=== PATIENT | female | born 1955 | race Caucasian/White ===

== ENCOUNTER 2024-09-22 10:02 | Emergency (ER) | payer MEDICARE, SELFPAY ==
[2024-09-22 10:15] VITALS: BP 166/76; PULSE 68; RESP 14; TEMP 36.4; O2SAT 98
--- OUTSIDE RECORDS SUMMARY | 2024-09-22 10:15 | XMS_ITS | Encounter Summary ---
Author Organization [facility] Address 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 - Medical [facility] [address] [facility] [address] [place] [id number] Ángel Basilio MD [address] [facility] [address] [place] [address] Social History Tobacco Use Types Packs/Day Years Used Date Smoking Tobacco: Never Assessed Comments Unknown Sex and Gender Information Value Date Recorded Sex Assigned at Not on file 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
--- OUTSIDE RECORDS SUMMARY | 2024-09-22 10:15 | XMS_ITS | Encounter Summary ---
Author Organization [facility] Address [address] [place] [address] Care Team Providers Care Auto Machinist Name Role Phone Tatianna Gonzalez MD Primary Care Provider [phone] Encounter Details Date Type Department Care Team (Latest Contact Info) Description 05/20/2000 Outpatient Historical [facility] JESSICA Basilio, Ángel Weems MD [address] [facility] [address] [place] [address] Gynecological examination (Primary Dx) Social History Tobacco Use Types Packs/Day Years Used Date Smoking Tobacco: Never Assessed Comments Unknown Sex and Gender Information Value Date Recorded Sex Assigned at Not on file 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
--- OUTSIDE RECORDS SUMMARY | 2024-09-22 10:15 | XMS_ITS | Encounter Summary ---
Author Organization [facility] Address 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
--- OUTSIDE RECORDS SUMMARY | 2024-09-22 10:15 | XMS_ITS | Encounter Summary ---
Author Organization [facility] Address 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 Gender Identity Not on file Sexual Orientation Not on file documented as of this encounter Plan of Treatment Not on file documented as of this encounter Procedures Procedure Name Priority Date/Time Associated Diagnosis Comments ECHO STRESS TEST EXERCISE WO ECG Routine 03/04/2008 3:44 PM DISH MACHINE OPERATOR CTA CHEST W WO CONTRAST Timed Study 03/04/2008 2:18 PM DISH MACHINE OPERATOR POC CREATININE Routine 03/04/2008 2:10 PM DISH MACHINE OPERATOR documented in this encounter Results * ECHOCARDIOGRAM STRESS TEST (03/04/2008 3:44 PM DISH MACHINE OPERATOR) Narrative INTERFACE SYSTEM - 03/04/2008 3:44 PM DISH MACHINE OPERATOR [facility] [address] [place] [address] [email or web address] Patient: Mary Brizuela MRN: Study ID: ADULT STRESS ECH Gender: Dank : 1955 Age: 53 years Race: 1 Room: Bed: Height: Study Date: March 04, 2008 Patient status: Outpatient Weight: Access. #: [id number] POC: Referring MD: Juliann Ordering: Jerry Referring MD: Juliann Attending MD: Jerry Admitting MD: Jerry Study Conclusions: SUMMARY - Stress results : Duration of exercise was 7 min and 16 sec. Target heart rate was achieved. There was no chest pain during stress. The stress ECG was negative for ischemia. - Baseline : Estimated left ventricular ejection fraction was in the range of 55 % to 65 %. - Echo image interpretation : There was no diagnostic evidence for stress-induced ischemia. IMPRESSIONS - Normal study after maximal exercise without reproduction of symptoms. History and indications - Detection of coronary artery disease. HISTORY - The patient is a 53 year old female. REST ECG - Normal baseline ECG. Treadmill exercise testing was performed, using the Salvador protocol. Stress and rest echocardiographic evaluation was performed from multiple acoustic windows for evaluation of ventricular function. Stress results Salvador protocol HR bpm SBP mmHg DBP mmHg Baseline 98 119 77 Peak 161 156 67 STRESS TEST DATA - No medications or fluids given. STRESS RESULTS - Duration of exercise was 7 min and 16 sec. - The patient exercised to protocol stage 3. - Maximal work rate was 10 METs. - Functional capacity was normal. - Maximal heart rate during stress was 161 bpm ( 97 % of maximal predicted heart rate). - The heart rate response to stress was normal. - There was normal resting blood pressure with an appropriate response to stress. - The rate-pressure product for the peak heart rate and blood pressure was [address]. - There was no chest pain during stress. - The stress test was terminated due to dyspnea and fatigue. - There were no stress arrhythmias or conduction abnormalities. - The stress ECG was negative for ischemia. Imaging data IMAGE PROPERTIES - The image quality was excellent. STRESS 2D ECHOCARDIOGRAPHIC RESULTS Baseline: - There was no diagnostic evidence for left ventricular regional wall motion abnormalities at baseline. - Left ventricular size was normal. - Overall left ventricular systolic function was normal. - Estimated left ventricular ejection fraction was in the range of 55 % to 65 %. ECHO IMPRESSIONS - There was no diagnostic evidence for stress-induced ischemia. Prepared and Electronically Authenticated Geremias Carty MD Confirmed March 04, 2008 15:19:53 Procedure Note Provider, Historical - 03/04/2008 [facility] [address] [place] [address] [email or web address] Patient: Mary Brizuela MRN: Study ID: ADULT STRESS ECH Gender: Dank : 1955 Age: 53 years Race: 1 Room: Bed: Height: Study Date: March 04, 2008 Patient status: Outpatient Weight: Access. #: [id number] POC: Referring MD: Juliann Ordering: Jerry Referring MD: Juliann Attending MD: Jerry Admitting MD: Jerry Study Conclusions: SUMMARY - Stress results : Duration of exercise was 7 min and 16 sec. Targetheart rate was achieved. There was no chest pain during stress. The stress ECG was negative for ischemia. - Baseline : Estimated left ventricular ejection fraction was in therange of 55 % to 65 %. - Echo image interpretation : There was no diagnostic evidence for stress-induced ischemia. IMPRESSIONS - Normal study after maximal exercise without reproduction of symptoms. History and indications - Detection of coronary artery disease. HISTORY - The patient is a 53 year old female. REST ECG - Normal baseline ECG. Treadmill exercise testing was performed, using the Salvador protocol.Stress and rest echocardiographic evaluation was performed from multipleacoustic windows for evaluation of ventricular function. Stress results Salvador protocol HR bpm SBP mmHg DBP mmHg Baseline 98 119 77 Peak 161 156 67 STRESS TEST DATA - No medications or fluids given. STRESS RESULTS - Duration of exercise was 7 min and 16 sec. - The patient exercised to protocol stage 3. - Maximal work rate was 10 METs. - Functional capacity was normal. - Maximal heart rate during stress was 161 bpm ( 97 % of maximalpredicted heart rate). - The heart rate response to stress was normal. - There was normal resting blood pressure with an appropriate responseto stress. - The rate-pressure product for the peak heart rate and blood pressurewas 23820. - There was no chest pain during stress. - The stress test was terminated due to dyspnea and fatigue. - There were no stress arrhythmias or conduction abnormalities. - The stress ECG was negative for ischemia. Imaging data IMAGE PROPERTIES - The image quality was excellent. STRESS 2D ECHOCARDIOGRAPHIC RESULTS Baseline: - There was no diagnostic evidence for left ventricular regional wall motion abnormalities at baseline. - Left ventricular size was normal. - Overall left ventricular systolic function was normal. - Estimated left ventricular ejection fraction was in the range of 55 %to 65 %. ECHO IMPRESSIONS - There was no diagnostic evidence for stress-induced ischemia. Prepared and Electronically Authenticated Geremias Carty MD Confirmed March 04, 2008 15:19:53 us Geremias Carty MD US ORDERABLES Final Result INTERFACE SYSTEM Refer to clinic/hospital department * CTA CHEST W WO CONTRAST (03/04/2008 2:18 PM DISH MACHINE OPERATOR) Anatomical Region Laterality Modality Chest Other 03/04/2008 2:18 PM DISH MACHINE OPERATOR Narrative 03/04/2008 3:05 PM DISH MACHINE OPERATOR [facility] [address] [place], [place] [address] Admit Date: 03/04/2008 MARY BRIZUELA Sex: F Admit Prov: GEREMIAS CARTY Date: 1955 Primary Care Prov: MONTY BIRMINGHAM CMRN: [id number] Room: [facility] SSN: [id number] IMAGING SERVICES Ordering Prov: N/A Accession Number: [id number] Interpretation CT Angiography of the Chest History: 53-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 Procedure: Contrast-enhanced CT angiography was performed with 105 cc of Optiray-320. Offline curved reformatted, volume rendered and maximum intensity projection images were obtained with an independent workstation. Vascular Findings: The aortic valve is trileaflet without thickening. There is no diastolic opening of the commissures to suggest aortic insufficiency. The aortic annulus is dilated at 43 x 37 mm in diameter. The aortic sinotubular junction is at upper limits of normal at 39 x 35 mm. The mid ascending aorta is mildly dilated at 40 mm diameter. The superior ascending aorta immediately before the innominate artery takeoff is 32 mm in diameter. Mid aortic arch is 27 mm in diameter. Proximal descending aorta is 28 mm in diameter. Distal descending aorta is 23 mm in diameter. There is a bovine configuration of the aortic arch. No atherosclerosis is seen at the origins of the innominate, left and right carotid and left subclavian arteries. There are normal origins of the right and left coronary arteries off of the right and left coronary cusps. Cardiac motion artifacts preclude coronary analysis. Contrast CT of the Chest: Nonvascular Findings: There is a 1 cm sclerotic lesion in the right side of the T3 vertebral body. No significant axillary lymph nodes. The breasts are without masses. No mediastinal adenopathy. No pericardial effusion. The esophagus appears normal. No pulmonary nodules are visualized within the reconstructed lung daley. No lesions are seen in the dome of the liver. Images reviewed with Dr. Edilberto Antunez. Impression: 1. Dilation of the aortic root to 4.0 cm diameter. 2. Normal aortic valve. 3. Unexplained sclerotic lesion in the T3 vertebral body. Consider bone scan and/or MRI for further evaluation to exclude the possibility of metastatic disease. . 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 Procedure: Contrast-enhanced CT angiography was performed with 105 ccof Optiray-320. Offline curved reformatted, volume rendered andmaximum intensity projection images were obtained with an independentworkstation. Vascular Findings: The aortic valve is trileaflet without thickening.There is no diastolic opening of the commissures to suggest aorticinsufficiency. The aortic annulus is dilated at 43 x 37 mm in diameter. The aortic sinotubular junction is at upper limits of normal at 39 x 35 mm. Themid ascending aorta is mildly dilated at 40 mm diameter. The superiorascending aorta immediately before the innominate artery takeoff is 32 mm in diameter. Mid aortic arch is 27 mm in diameter. Proximal descendingaorta is 28 mm in diameter. Distal descending aorta is 23 mm in diameter.There is a bovine configuration of the aortic arch. No atherosclerosis isseen at the origins of the innominate, left and right carotid and leftsubclavian arteries. There are normal origins of the right and left coronaryarteries off of the right and left coronary cusps. Cardiac motion artifactspreclude coronary analysis. Contrast CT of the Chest: Nonvascular Findings: There is a 1 cm sclerotic lesion in the rightside of the T3 vertebral body. No significant axillary lymph nodes. Thebreasts are without masses. No mediastinal adenopathy. No pericardial effusion.The esophagus appears normal. No pulmonary nodules are visualized withinthe reconstructed lung daley. No lesions are seen in the dome of theliver. Images reviewed with Dr. Edilberto Antunez. Impression: 1. Dilation of the aortic root to 4.0 cm diameter. 2. Normal aortic valve. 3. Unexplained sclerotic lesion in the T3 vertebral body. Considerbone scan and/or MRI for further evaluation to exclude the possibilityof metastatic disease. . Dictated by: WALDEMAR RIVERA 03/04/2008 14:55 Electronically signed by: WALDEMAR RIVERA 03/04/2008 15:[address] ORDERABLES Final Result * POC CREATININE (03/04/2008 2:10 PM DISH MACHINE OPERATOR) CREATININE POC 0.9 0.6 - 1.3 mg/dL [facility] Comment: The calculation for the estimated GFR on the i-STAT POC instrument has been changed to correspond to the IDMS-traceable MDRD Study, upon the recommendation of the marketing operations consultant of the i-STAT instrument. The change was effective in our laboratory 02/01/2008. The impact of this change to the estimated GFR is minimal. This calculation is used by the main laboratory methodology also. GFR, >60 >=60 mL/min/1.7 sq meter [facility] GFR >60 >=60 mL/min/1.7 sq meter [facility] Capillary blood specimen (specimen) 03/04/2008 2:10 PM DISH MACHINE OPERATOR 03/04/2008 2:10 PM DISH MACHINE OPERATOR Geremias Carty MD POINT OF CARE TESTING Edited INTERFACE SYSTEM Refer to clinic/hospital department [facility] CLIA# [id number] [address] [place] [address] documented in this encounter Visit Diagnoses Diagnosis Chronic total occlusion of coronary artery(414.2) Chronic total occlusion of coronary artery documented in this encounter Care Teams Weight Shifter Relationship Specialty Start Date End Date Tatianna Gonzalez MD PCP - General Internal Medicine 12/05/17 documented as of this encounter
--- OUTSIDE RECORDS SUMMARY | 2024-09-22 10:15 | XMS_ITS | Encounter Summary ---
Author Organization [facility] Address [address] [place] [address] Care Team Providers Care Cis Coordinator Name Role Phone Tatianna Gonzalez MD Primary Care Provider [phone] Encounter Details Date Type Department Care Team (Late st Contact Info) Description 05/20/2000 Outpatient Historical [facility] AGED OR DISABLED CARE WORKER - Medical [facility] [address] [facility] [place] [address] [place] [phone] Elmer Newmanh Social History Tobacco Use Types Packs/Day Years Used Date Smoking Tobacco: Never Assessed Comments Unknown Sex and Gender Information Value Date Recorded Sex Assigned at Not on file 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
--- OUTSIDE RECORDS SUMMARY | 2024-09-22 10:15 | XMS_ITS | Clinical Summary ---
Author Organization [facility] Address [address] [place] [address] Care Team Providers Care Global Lead Name Role Phone Chasity Kelly DO Primary Care Provider [phone] Source Comments [facility],non-owned Affiliates and Associated Physician Practices is amultiple site organization consisting of ambulatory clinics and hospital sitesin [place], [place], [place] and [place]. This disclosure is being madepursuant to the Care Everywhere program and may not contain all information available regarding this patient. Last updated 17.[facility] Allergies No known active allergies Medications * Be aware that medications may not be up to date on this document. Alwaysverify current medications with the patient. Calcium-Vitamin D (CALCIUM + D PO)Indications: Acid reflux,Dilated aortic root,HLD (hyperlipidemia ) Take by mouth daily. Active metoprolol succinate XL 24hr (TOPROL XL) 50 MG tablet Take 50 mg by mouth 7 Active omeprazole (PRILOSEC) 20 MG capsule TAKE 1 CAPSULE BY MOUTH DAILY BEFORE BREAKFAST 90 Cap 3 7 Active Active Problems Problem Noted Date Diagnosed Date Dilated aortic root cardilogy follows 09/07/2014 Acid reflux 06/19/2010 HLD (hyperlipidemia) 06/19/2010 Overview (06/19/2010): ldl 145 Resolved Problems Problem Noted Date Diagnosed Date Resolved Date Dilated aortic root 06/19/2010 08/06/19 12 Overview (06/19/2010): Sees Cardiology yearly Immunizations Immunization Administration Dates Next Due INFLUENZA VACCINE 12/14/2014,02/05/2014 ZOSTER VACCINE, LIVE 09/07/2014 Family History Medical History Relation Name Comments Cancer Father prostate CAD (Coronary Artery Disease) Mother Diabetes Mother Cancer - Breast Neg Hx Cancer - Ovarian Neg Hx Relation Name Status Comments Father Alive Mother Alive Social History Tobacco Use Types Packs/Day Years Used Date Smoking Tobacco: Never Alcohol Use Standard Drinks/Week Comments Yes 0 (1 standard drink = 0.6 oz pur e alcohol) very rarely Comments No Sex and Gender Information Value Date Recorded Sex Assigned at Female 01/13/2021 4:31 PM CIVIL ENGINEERING TECHNICIAN Legal Sex Female 4:08 AM CIVIL ENGINEERING TECHNICIAN Gender Identity Female 01/13/2021 4:31 PM CIVIL ENGINEERING TECHNICIAN Sexual Orientation Straight 01/13/2021 4: 31 PM CIVIL ENGINEERING TECHNICIAN Last Filed Vital Signs Vital Sign Reading Time Taken Comments Blood Pressure 132/78 06/07/2016 1:01 PM CDT Pulse 73 06/07/2016 1:01 PM CDT Temperature 36.8 C (98.2 F) 11/03/2009 2:16 PM CDT Respiratory Rate 12 10/15/2011 11:00 AM CDT Oxygen Saturation 97% 06/07/2016 1:01 PM CDT Inhaled Oxygen Concentration - - Weight 79.4 kg (175 lb) 05/27/2024 1:22 PM CDT Height 166.4 cm (5' 5.5 ) 04/24/2023 1:39 PM CIVIL ENGINEERING TECHNICIAN Body Mass Index 28.68 04/24/2023 1:39 PM CIVIL ENGINEERING TECHNICIAN Plan of Treatment Health Maintenance Due Date Last Done Comments COLOGUARD (AGES 45-75) - COLON CA SCREENING 1955 CT COLONOGRAPHY - COLON CA SCREENING 1955 FIT - COLON CA SCREENING 1955 FLEX SIG - COLON CA SCREENING 1955 MEDICARE AWV 12 MONTHS 1955 DTAP/TDAP/TD VACCINES (1 - Tdap) 1973 PNEUMOCOCCAL VACCINE 50+ (1 of 1 - PCV) 02/24/2004 ZOSTER VACCINE (2 of 3) 11/02/2014 09/07/2014 LIPID TESTING 10/25/2020 10/26/2015, 08/24, 11/16/2013, Additional history exists COVID-19 VACCINE (2023- season) 2023 DEPRESSION SCREENING 02/25/2024 INFLUENZA VACCINE (#1) 2024 12/14/2014, 2013 MAMMOGRAM 05/27/2026 05/27/2024, 03/28, 04/22/2022, Additional history exists Respiratory Syncytial Virus (RSV) Vaccine Pt: or over 60 yrs (1 - 1-dose 75+ series) 2029 COLON MONITORING 06/05/2033 06/06/2023, 10/30/2011 COLONOSCOPY - COLON CA SCREENING 06/05/2033 06/06/2023, 10/31/2011, 10/30/2011, Additional history exists Colorectal Cancer Screening 06/05/2033 HEPATITIS C SCREENING Completed 09/01/2012 BONE DENSITY TESTING Completed 03/29/2024, 12/07/19 21 HEPATITIS B VACCINE Aged Out No longe r eligible based on patient's age to complete this topic HIB VACCINE Aged Out No longer eligi ble based on patient's age to complete this topic HPV VACCINE Aged Out No longer eligi ble based on patient's age to complete this topic MENINGOCOCCAL (Group B) VACCINE SHARED DECISION-MAKING Aged Out No longer eligible based on patient's age to complete this topic MENINGOCOCCAL GROUPS A/C/Y/W VACCINE Aged Out No longer eligible based on patient's age to complete this topic Procedures Procedure Name Priority Date/Time Associated Diagnosis Comments MAMMO BILAT SCREENING W BASILIO Routine 05/27/2024 1:30 PM CDT Encounter for screening mammogram for breast cancer LIPID PROFILE Routine 10/26/2015 8:54 AM CDT Routine general medical examination at a health care facility Dilated aortic root cardilogy follows Gastroesophageal reflux disease with esophagitis HEPATITIS C ANTIBODY Routine 09/01/2012 8:59 AM CDT Routine general medical examination at a health care facility Acid reflux HLD (hyperlipidemia) ENDOSCOPY, COLON, DIAGNOSTIC Routine 10/30/2011 Change in bowel function from Last 3 Months or Most Recently Relevant to Health Maintenance Results * Mammo Bilat Screening W Basilio (05/27/2024 1:30 PM CDT) Anatomical Region Laterality Modality Breast Bilateral Mammography 05/28/2024 9:02 AM CDT Impressions 05/28/2024 9:03 AM CDT IMPRESSION: No mammographic evidence of malignancy. BI-RADS Category 1: Negative Mammogram. Recommendation: Resume routine yearly mammography schedule for women over age 40 or return sooner if clinically indicated. > Interpreting Provider: Aureliano Ramos MD on 05/28/2024 9:03 AM Narrative 05/28/2024 9:03 AM CDT PROCEDURE: MAMMO BILAT SCREENING W BASILIO DATE/TIME OF EXAM: 05/27/2024 1:30 PM COMPARISON: 04/24/2023. HISTORY: Screening mammogram. TECHNIQUE: Bilateral breasts. Mammography views included: CC and MLO. Images interpreted with CAD. Following current [facility] protocol, 3D mammographic tomosynthesis images were obtained and reviewed on a dedicated viewing station. FINDINGS: Breast composition: There are scattered areas of fibroglandular density. No suspicious calcifications, masses, or areas of architectural distortion. The fibroglandular pattern has remained stable. us Chasity Kelly DO MAMMO ORDERABLES Final Result * (ABNORMAL) LIPID PROFILE (10/26/2015 8:54 AM CDT) Cholesterol 247(H) <200 mg/dL [facility] ACCOUNT BILL Triglycerides 88 <150 mg/dL [facility] ACCOUNT BILL HDL Cholesterol 62 >40 mg/dL [facility] ACCOUNT BILL VLDL Calculated 18 <=30 mg/dL [facility] ACCOUNT BILL LDL Calculated 167(H) <130 mg/dL [facility] ACCOUNT BILL Blood specimen (specimen) BLOOD SPECIMEN / Unknown 10/26/2015 8:54 AM CDT 10/26/2015 1:55 PM CDT Narrative Resulting Agency Comment [facility] [address] [place] [id number] us Chano Dalton Jr., MD LAB - CHEMISTRY ORDERABLE S Final Result [facility] ACCOUNT BILL [address] [place] [address] * HEPATITIS C ANTIBODY (09/01/2012 8:59 AM CDT) Hepatitis C Antibody <0.1 0.0 - 0.9 s/co ratio [facility] ACCOUNT BILL Comment: Negative: < 0.8 Indeterminate 0.8 - 0.9 Positive: > 0.9 . In order to reduce the incidence of a false positive result, the CDC recommends that all s/co ratios between 1.0 and 10.9 be confirmed by a more specific supplemental or PCR testing. [facility] w/Reflex to Verification test #[id number]. Blood specimen (specimen) BLOOD SPECIMEN / Unknown 09/01/2012 8:59 AM CDT 09/01/2012 12:36 PM CDT Narrative Resulting Agency Comment [facility] [address] [phone] us Chano Dalton Jr., MD LAB - CHEMISTRY ORDERABLE S Final Result Performing Organization Address City/[facility]/ZIP Co de Phone Number [facility] ACCOUNT BILL [address] [place] [address] * ENDOSCOPY, COLON, DIAGNOSTIC (10/30/2011) us Chano Melton MD GI PROCEDURE ORDERABLES Final Result Performing Organization Address City/[facility] Co de Phone Number [facility] RESULT SCAN from Last 3 Months or Most Recently Relevant to Health Maintenance Insurance [facility]ICARE [facility] Care Teams Global Lead Relationship Specialty Start Date End Date Chasity Kelly DO [address] [facility] [address] [place] [address] PCP - General Internal Medicine 04/24/23
--- OUTSIDE RECORDS SUMMARY | 2024-09-22 10:15 | XMS_ITS | Encounter Summary ---
Author Organization [facility] Address [address] [place] [address] Care Team Providers Care Dowel Inspector Name Role Phone Tatianna Gonzalez MD Primary Care Provider [phone] Encounter Details Date Type Department Care Team (Latest Contact Info) Description 06/23/2008 Outpatient Historical [facility] Criselda Mason MD [address] [place] [address] Lump or Mass in Breast Social History Tobacco Use Types Packs/Day Years Used Date Smoking Tobacco: Never Alcohol Use Standard Drinks/Week Comments No 0 (1 standard drink = 0.6 oz pur e alcohol) Comments No Sex and Gender Information Value Date Recorded Sex Assigned at Not on file 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 Gender Identity Not on file Sexual Orientation Not on file documented as of this encounter Plan of Treatment Not on file documented as of this encounter Procedures Procedure Name Priority Date/Time Associated Diagnosis Comments XR THORACIC SPINE 3 VW Timed Study 06/23/2008 3:51 PM CDT documented in this encounter Results * XR THORACIC SPINE 3 VW (06/23/2008 3:51 PM CDT) Anatomical Region Laterality Modality Spine Other 06/23/2008 3:51 PM CDT Narrative 06/23/2008 4:18 PM CDT [facility] [address] [place], [place] [address] Admit Date: 06/23/2008 AISHWARYA BRIZUELA Sex: F Admit Prov: CRISELDA MASON Date: 1955 Primary Care Prov: MONTY BIRMINGHAM CMRN: [id number] [id number] Ordering Prov: N/A Accession Number: [id number] Interpretation Thoracic spine 3 views Jun 23, 2008 3:51:18 PM History: Followup of suspected bone island at T2 Findings: There is a small 4 mm sclerotic focus at T2 that may correspond to the suspected bone island identified on previous MRI. No other obvious lytic or blastic bone lesions are appreciated. No compression deformities. Disc height is maintained. The pedicles intact. The visualized lungs are unremarkable. Heart and mediastinal contours are within normal limits. Impression: Sclerotic focus in the T2 vertebral body on the right could represent a bone island as per patient history. Followup is recommended. . Dictated by: GREG COTTON 06/23/2008 16:13 Electronically signed by: GREG COTTON 06/23/2008 16:16 Procedure Note Greg Cotton - 06/23/[address] [address] Admit Date: 06/23/2008 AISHWARYA BRIZUELA Sex: F Admit Prov: CRISELDA MASON Date:1955 Primary Care Prov: MONTY BIRMINGHAM CMRN: [id number] [id number] IM[facility] Ordering Prov: N/A Interpretation Thoracic spine 3 views Jun 23, 2008 3:51:18 PM History: Followup of suspected bone island at T2 Findings: There is a small 4 mm sclerotic focus at T2 that maycorrespond to the suspected bone island identified on previous MRI. No otherobvious lytic or blastic bone lesions are appreciated. No compressiondeformities. Disc height is maintained. The pedicles intact. The visualized lungsare unremarkable. Heart and mediastinal contours are within normallimits. Impression: Sclerotic focus in the T2 vertebral body on the right could representa bone island as per patient history. Followup is recommended. . Dictated by: GREG COTTON 06/23/2008 16:13 Electronically signed by: GREG COTTON 06/23/2008 16:16 us Criselda Mason MD DIAGNOSTIC IMAGING ORDERABLES F inal Result documented in this encounter Visit Diagnoses Diagnosis Lump or mass in breast documented in this encounter Care Teams Dowel Inspector Relationship Specialty Start Date End Date Tatianna Gonzalez MD PCP - General Internal Medicine 12/05/17 documented as of this encounter
--- OUTSIDE RECORDS SUMMARY | 2024-09-22 10:15 | XMS_ITS | Encounter Summary ---
Author Organization [facility] Address [address] [place] [address] Care Team Providers Care Special Agent Group Insurance Name Role Phone Tatianna Gonzalez MD Primary Care Provider [phone] Encounter Details Date Type Department Care Team (Late st Contact Info) Description 10/25/2005 Outpatient Historical [facility] [place] 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
--- OUTSIDE RECORDS SUMMARY | 2024-09-22 10:15 | XMS_ITS | Encounter Summary ---
Author Organization [facility] Address 

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
--- OUTSIDE RECORDS SUMMARY | 2024-09-22 10:15 | XMS_ITS | Clinical Summary ---
Author Organization [facility] Address [address] [place] [address] Phone Care Team Providers Care Rn Emergency Name Role Phone Tatianna Gonzalez MD Primary Care Provider [phone] Allergies No known active allergies Medications omeprazole (PRILOSEC) 10 mg Oral CpDR Take 20 mg by mouth daily. Active metoprolol succinate (TOPROL XL) 50 mg Extended Release 24 hour tablet Take 1.5 Tablets (75 mg) by mouth daily Per PCP. 30 Tablet 11 07/02/2018 Active Active Problems Patient Care Coordination No te Formatting of this note migh t be different from the original. Primary Care: Chano Dalton MD Referring Provider: Chano Dalton MD [address] [place] [address] Other: Dr Iliana Ramos Problem Noted Date Diagnosed Date Lump of breast, right 08/24/2014 GERD (gastroesophageal reflux disease) 9 Dilated aortic root 02/02/2009 Acid reflux Enlarged aorta Family History Medical History Relation Name Comments Cancer Father Heart Disease Father Prostate Cancer Father Other Maternal Grandmother DIABETE S Diabetes Mother Heart Disease Mother Hypertension Mother Other Mother BORDERLINE DIAB ETIC Breast Cancer Neg Hx Ovarian Cancer Neg Hx Uterine Cancer Neg Hx Relation Name Status Comments Father Alive Maternal Grandmother Mother Alive Social History Tobacco Use Types Packs/Day Years Used Date Smoking Tobacco: Never Smokeless Tobacco: Never Tobacco Cessation:Counseling Given: No Alcohol Use Standard Drinks/Week Comments No 0 (1 standard drink = 0.6 oz pur e alcohol) RARE Comments No Sex and Gender Information Value Date Recorded Sex Assigned at Not on file Legal Sex Female 2:41 AM ORE DIGGER Gender Identity Not on file Sexual Orientation Not on file Occupation Industry Job Start Date Job End Date Not on file Not on file Not on file Not on file Last Filed Vital Signs Vital Sign Reading Time Taken Comments Blood Pressure 136/72 11/26/2017 10:30 AM CDT Pulse 60 11/26/2017 10:30 AM CDT Temperature 37.2 C (98.9 F) 04/08/2010 2:29 PM ORE DIGGER Respiratory Rate 18 04/08/2010 6:24 PM ORE DIGGER Oxygen Saturation 97% 11/26/2017 10:30 AM CDT Inhaled Oxygen Concentration - - Weight 78.5 kg (173 lb) 11/26/2017 10:30 AM CDT Height 170.2 cm (5' 7 ) 11/26/2017 10:30 AM CDT Body Mass Index 27.1 11/26/2017 10:30 AM CDT Plan of Treatment Health Maintenance Due Date Last Done Comments DTAP/TDAP/TD VACCINES (1 - Tdap) 1973 COLORECTAL SCREENING 1999 Colorectal Cancer Screening 1999 FIT-DNA Q 3 years 1999 FIT/FOBT Q 1 year 1999 Flex Sig/CT Colonography Q 5 years 1999 PNEUMOCOCCAL VACCINE 50+ YEA RS (1 of 1 - PCV) 02/24/2004 ZOSTER VACCINE (1 of 2) 02/24/2004 BREAST CANCER SCREENING 09/02/2015 09/02/19 15, 09/03/2013, 09/12/2012, Additional history exists OSTEOPOROSIS SCREENING 2019 INFLUENZA VACCINE (#1) 2024 RSV VACCINE (60+ or ) (1 - 1-dose 75+ series) 2029 Procedures Procedure Name Priority Date/Time Associated Diagnosis Comments MAMMO DIAGNOSTIC BILATERAL W OR WO CAD Routine 09/01/2014 12:42 PM CDT Lump of breast, right Dilated aortic root Essential hypertension from Last 3 Months or Most Recently Relevant to Health Maintenance Results * MAMMO DIGITAL DIAG BILAT (09/01/2014 12:42 PM CDT) Anatomical Region Laterality Modality Breast Bilateral Mammography 09/01/2014 12:4 1 PM CDT Narrative 09/02/2014 8:00 AM CDT DIAGNOSTIC MAMMOGRAM BILATERAL WITH CAD AND LIMITED RIGHT BREAST ULTRASOUND. 09/01/14 HISTORY: The patient has a known lipoma in the upper-outer quadrant of the right breast. This is a recheck. TECHNIQUE: Bilateral diagnostic mammogram was performed. Comparison is made with previous mammograms dated August 2013 and August 2012 BREAST COMPOSITION: Scattered fibroglandular densities. FINDINGS: No dominant masses, areas of asymmetry or suspicious clustered calcifications are identified within either breast. CAD was utilized. A right breast ultrasound was performed. In the far superior aspect of the right breast an isoechoic mass is identified which measures 3.7 x 1.6 x 5.1 cm in size. I have no prior ultrasounds for comparison of size. Overall assessment: BI-RADS category 2. Benign findings. RECOMMENDATION: Clinical followup is recommended Dictated from Alayna Neal Procedure Note Jaylyn Recinos MD - 09/02/2014 DIAGNOSTIC MAMMOGRAM BILATERAL WITH CAD AND LIMITED RIGHT BREAST ULTRASOUND. 09/01/14 HISTORY: The patient has a known lipoma in the upper-outer quadrant of the right breast. This is a recheck. TECHNIQUE: Bilateral diagnostic mammogram was performed. Comparison is made with previous mammograms dated August 2013 and August 2012 BREAST COMPOSITION: Scattered fibroglandular densities. FINDINGS: No dominant masses, areas of asymmetry or suspicious clustered calcifications are identified within either breast. CAD was utilized. A right breast ultrasound was performed. In the far superior aspect of the right breast an isoechoic mass is identified which measures 3.7 x 1.6 x 5.1 cm in size. I have no prior ultrasounds for comparison of size. Overall assessment: BI-RADS category 2. Benign findings. RECOMMENDATION: Clinical followup is recommended Dictated from Alayna Neal Iliana Ramos MD MAMMO ORDERABLES Final Result from Last 3 Months or Most Recently Relevant to Health Maintenance Insurance [facility] BLUE ACCESS CHOICE Advance Directives For more information, please contact: [phone] * Full Code (Latest Code Status on File) Date Activated Date Inactivated Comments 09/01/2009 1:18 PM 09/02/2009 2:32 AM Care Teams Rn Emergency Relationship Specialty Start Date End Date Tatianna Gonzalez MD PCP - General Internal Medicine 12/05/17
--- OUTSIDE RECORDS SUMMARY | 2024-09-22 10:15 | XMS_ITS | Encounter Summary ---
Author Organization [facility] Address [address] [place] [address] Care Team Providers Care Supervisor Dials Name Role Phone Tatianna Gonzalez MD Primary Care Provider [phone] Encounter Details Date Type Department Care Team (Latest Contact Info) Description 12/30/2007 Outpatient Historical [facility] Chano Dalton MD NO ADDRESS ON FILE Chronic Total Occlusion of Coronary Artery Social History Tobacco Use Types Packs/Day Years Used Date Smoking Tobacco: Never Assessed Comments Unknown Sex and Gender Information Value Date Recorded Sex Assigned at Not on file Legal Sex Female 2:41 AM MANAGER RESIDENTIAL Gender Identity Not on file Sexual Orientation Not on file documented as of this encounter Plan of Treatment Not on file documented as of this encounter Visit Diagnoses Diagnosis Chronic total occlusion of coronary artery(414.2) Chronic total occlusion of coronary artery documented in this encounter Care Teams Supervisor Dials Relationship Specialty Start Date End Date Tatianna Gonzalez MD PCP - General Internal Medicine 12/05/17 documented as of this encounter
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
--- OUTSIDE RECORDS SUMMARY | 2024-09-22 10:16 | XMS_ITS | Encounter Summary ---
Author Organization [facility] Address [address] [place] [address] Phone Care Team Providers Care Boatwright Name Role Phone Unknown, Notinfile Primary Care Provider Unavail able Tatianna Gonzalez MD Primary Care Provider [phone] Krystle Guaman MD, Chano Harrington Primary Care Provider + Lenny Wylie MD Unavailable [phone] Tatianna Gonzalez MD Primary Care Provider [phone] Lenny Wylie MD Unavailable [phone] Chasity Kelly DO Primary Care Provider [phone] Encounter Details Date Type Department Care Team (Late st Contact Info) Description 05/26/[address] [facility] ProviderNorah MD [address] [place] [address] Social History Tobacco Use Types Packs/Day Years Used Date Smoking Tobacco: Never Comments Unknown Sex and Gender Information Value Date Recorded Sex Assigned at Not on file Legal Sex Female 8:51 PM INSPECTOR OPEN DIE Gender Identity Female 08/09/2019 11:18 AM CDT Sexual Orientation Straight 08/09/2019 11 :18 AM CDT documented as of this encounter Plan of Treatment Not on file documented as of this encounter Procedures Procedure Name Priority Date/Time Associated Diagnosis Comments DISCHARGE LABORATORY CUMULATIVE REPORT 05/26/2017 12:00 AM CDT CYTOLOGY 05/26/2017 12:00 AM CDT documented in this encounter Results * DISCHARGE LABORATORY CUMULATIVE REPORT (05/26/2017 12:00 AM CDT) Narrative 05/26/2017 12:00 AM CDT Ordered by an unspecified provider. us Historical Provider LAB BLOOD ORDERABLES Natalee l Result * CYTOLOGY (05/26/2017 12:00 AM CDT) Narrative 05/26/2017 12:00 AM CDT Ordered by an unspecified provider. us Historical Provider LAB CYTOLOGY ORDERABLES F inal Result documented in this encounter Visit Diagnoses Not on filedocumented in this encounter Additional Health Concerns Infection Onset Date Last Indicated Resolved Time COVID: Suspected 07/27/2023 07/27/2023 07/27/2023 5:22 PM CDT COVID: Suspected 07/27/2023 07/27/2023 07/27/2023 6:58 PM CDT Parainfluenza, droplet 07/27/2023 07/27/202308/02 3:05 AM CDT documented as of this encounter Care Teams Boatwright Relationship Specialty Start Date End Date Unknown, Notinfile PCP - General 05/26/17 06/29/17 Tatianna Gonzalez MD PCP - General Internal Medicine 06/30/17 07/24/17 Chano Dalton Jr., MD [address] [place] [address] PCP - General 07/25/17 07/05/18 Tatianna Gonzalez MD [address] [facility] [address] [place] [address] PCP - General Internal Medicine 07/06/18 03/12/23 Chasity Kelly DO [address] [place] [address] PCP - General Internal Medicine 03/13/23 Lenny Wylie MD [address] [facility] [address] [place] [address] Tire Fabric Impregnating Range Tender Cardiology 01/11/22 07/22/22 Lenny Wylie MD [address] [facility] [address] [place] [address] Tire Fabric Impregnating Range Tender Cardiology 01/11/22 documented as of this encounter
--- OUTSIDE RECORDS SUMMARY | 2024-09-22 10:16 | XMS_ITS | Encounter Summary ---
Author Organization [facility] Address [address] [place] [address] Care Team Providers Care Tow Boat Captain Name Role Phone Tatianna Gonzalez MD Primary Care Provider [phone] Encounter Details Date Type Department Care Team (Late st Contact Info) Description 03/24/2008 Outpatient Historical [facility] Jomar Carty MD NO ADDRESS ON FILE Social History Tobacco Use Types Packs/Day Years Used Date Smoking Tobacco: Never Assessed Comments Unknown Sex and Gender Information Value Date Recorded Sex Assigned at Not on file Legal Sex Female 2:41 AM RV TECHNICIAN Gender Identity Not on file Sexual Orientation Not on file documented as of this encounter Plan of Treatment Not on file documented as of this encounter Procedures Procedure Name Priority Date/Time Associated Diagnosis Comments MRI THORACIC W WO CONTRAST Timed Study 03/24/2008 8:15 AM RV TECHNICIAN documented in this encounter Results * MRI THORACIC W WO CONTRAST (03/24/2008 8:15 AM RV TECHNICIAN) Anatomical Region Laterality Modality Spine Other 03/24/2008 8:15 AM RV TECHNICIAN Narrative 03/24/2008 9:41 AM RV TECHNICIAN [address] [place], [place] [address] Admit Date: 03/24/2008 AISHWARYA BRIZUELA Sex: F Admit Prov: JOMAR CARTY Date: 1955 Primary Care Prov: MONTY BIRMINGHAM CMRN: [id number] Room: [facility] SSN: [id number] IMAGING SERVICES Ordering Prov: N/A Accession Number: [id number] Interpretation MRI OF THE THORACIC SPINE WITHOUT AND WITH INTRAVENOUS CONTRAST, 03/24/2008 History: Sclerotic lesion on the right in T3 per CT report, assess for metastasis. Comparison: CT chest angio study February 2008 Findings: MRI sequences demonstrate a T1 hypointense, T2 hypointense nonenhancing lesion in the right T2 vertebral body and proximal pedicle (counting verified - in T2 on CT images also). This does not enhance after contrast, and could represent a sclerotic bone island. No additional sclerotic or other marrow lesions are seen elsewhere in the included field of view. The spinal cord is normal in signal and appearance. No significant disc degeneration is seen. Impression: Sclerotic right T2 lesion, nonspecific in nature, but probably benign given the lack of additional lesions seen. . Dictated by: RACHEL REAGAN 03/24/2008 08:30 Electronically signed by: RACHEL REAGAN 03/24/2008 09:40 Transcribed: 03/24/2008 08:39 DKT Procedure Note Rachel Reagan - 03/24/2008 [facility] [address] [place], [place] [address] Admit Date: 03/24/2008 AISHWARYA BRIZUELA E Sex: F Admit Prov: JOMAR CARTY Date:1955 Primary Care Prov: MONTY BIRMINGHAM CMRN: [id number] [facility]: [id number] IMAGING SERVICES Ordering Prov: N/A Interpretation MRI OF THE THORACIC SPINE WITHOUT AND WITH INTRAVENOUS CONTRAST,03/24/2008 History: Sclerotic lesion on the right in T3 per CT report, assessfor metastasis. Comparison: CT chest angio study February 2008 Findings: MRI sequences demonstrate a T1 hypointense, T2 hypointensenonenhancing lesion in the right T2 vertebral body and proximal pedicle(counting verified - in T2 on CT images also). This does not enhance aftercontrast, and could represent a sclerotic bone island. No additional scleroticor other marrow lesions are seen elsewhere in the included field ofview. The spinal cord is normal in signal and appearance. No significant disc degeneration is seen. Impression: Sclerotic right T2 lesion, nonspecific in nature, but probably benigngiven the lack of additional lesions seen. . Dictated by: RACHEL REAGAN 03/24/2008 08:30 Electronically signed by: RACHEL REAGAN 03/24/2008 09:40 Transcribed: 03/24/2008 08:39 DKT us Jomar Carty MD MR ORDERABLES Final Result documented in this encounter Visit Diagnoses Not on filedocumented in this encounter Care Teams Tow Boat Captain Relationship Specialty Start Date End Date Tatianna Gonzalez MD PCP - General Internal Medicine 12/05/17 documented as of this encounter
--- OUTSIDE RECORDS SUMMARY | 2024-09-22 10:16 | XMS_ITS | Encounter Summary ---
Author Organization [facility] Address [address] [place] [address] Care Team Providers Care Elementary School Band Director Name Role Phone Tatianna Gonzalez MD Primary Care Provider [phone] Encounter Details Date Type Department Care Team (Latest Contact Info) Description 05/10/2008 Outpatient Historical [facility] Jose Thornton MD [address] [place] [address] Lump or Mass in Breast Social History Tobacco Use Types Packs/Day Years Used Date Smoking Tobacco: Never Assessed Comments Unknown Sex and Gender Information Value Date Recorded Sex Assigned at Not on file Legal Sex Female 2:41 AM OPS MANAGER Gender Identity Not on file Sexual Orientation Not on file documented as of this encounter Plan of Treatment Not on file documented as of this encounter Visit Diagnoses Diagnosis Lump or mass in breast documented in this encounter Care Teams Elementary School Band Director Relationship Specialty Start Date End Date Taitanna Gonzalez MD PCP - General Internal Medicine 12/05/17 documented as of this encounter
--- OUTSIDE RECORDS SUMMARY | 2024-09-22 10:16 | XMS_ITS | Encounter Summary ---
Author Organization [facility] Address [address] [place] [address] Care Team Providers Care Equipment Operator Name Role Phone Tatianna Gonzalez MD Primary Care Provider [phone] Encounter Details Date Type Department Care Team (Latest Contact Info) Description 04/08/2008 Outpatient Historical [facility] Jose Thornton MD [address] [place] [address] Lump or Mass in Breast Social History Tobacco Use Types Packs/Day Years Used Date Smoking Tobacco: Never Assessed Comments Unknown Sex and Gender Information Value Date Recorded Sex Assigned at Not on file Legal Sex Female 2:41 AM INBOUND SALES MANAGER Gender Identity Not on file Sexual Orientation Not on file documented as of this encounter Plan of Treatment Not on file documented as of this encounter Procedures Procedure Name Priority Date/Time Associated Diagnosis Comments IMMUNOFIXATION Stat 04/08/2008 2:40 PM INBOUND SALES MANAGER CBC WITH DIFFERENTIAL Stat 04/08/2008 2:40 PM INBOUND SALES MANAGER PROTEIN ELECTROPHORESIS W/REFLEX,SERUM Stat 04/08/2008 2:40 PM INBOUND SALES MANAGER COMPREHENSIVE METABOLIC PANEL Stat 04/08/2008 2:40 PM INBOUND SALES MANAGER documented in this encounter Results * IMMUNOFIXATION (04/08/2008 2:40 PM INBOUND SALES MANAGER) Blood specimen (specimen) 04/08/2008 2:40 PM INBOUND SALES MANAGER 04/08/2008 2:54 PM INBOUND SALES MANAGER us Jose Thornton MD CHEMISTRY ORDERABLES Final Resu lt INTERFACE SYSTEM Refer to clinic/hospital department * (ABNORMAL) COMPREHENSIVE METABOLIC PANEL (04/08/2008 2:40 PM INBOUND SALES MANAGER) AST 27 12 - 32 U/L [facility] BUN 19 6 - 20 mg/dL [facility] CALCIUM 9.6 8.6 - 10.2 mg/dL [facility] CHLORIDE 104 96 - 108 mmol/L [facility] ALBUMIN 4.0 3.4 - 4.8 g/dL [facility] SODIUM 141 135 - 145 mmol/L [facility] ALT 33(H) 0 - 31 U/L [facility] ALKALINE PHOSPHATASE 83 35 - 104 U/L [facility] CREATININE 0.87 0.51 - 0.95 mg/dL [facility] BILIRUBIN TOTAL 0.3 0.2 - 1.0 mg/dL [facility] CO2 30 22 - 30 mmol/L [facility] GLUCOSE 105(H) 65 - 99 mg/dL [facility] TOTAL PROTEIN 7.2 6.3 - 8.6 g/dL [facility] POTASSIUM 3.9 3.5 - 4.9 mmol/L [facility] GFR, >60 >=60 mL/min/1. 7 sq meter [facility] GFR >60 >=60 mL/min/1. 7 sq meter [facility] Comment: Modification of Diet in Renal Disease (MDRD) study formula. Estimated GFR rate interpretative information for both Americans and non- Americans is available on the [facility] Intranet at: [email or web address] Select: Lab Policies and Procedures Select: Reference Ranges - GFR Blood specimen (specimen) 04/08/2008 2:40 PM INBOUND SALES MANAGER 04/08/2008 2:44 PM INBOUND SALES MANAGER Jose Thornton MD CHEMISTRY ORDERABLES Edited Performing Organization Address [facility] Phone Number INTERFACE SYSTEM Refer to clinic/hospital department [facility] CLIA# [id number] [address] [place] [address] * PROTEIN ELECTROPHORESIS, SERUM (04/08/2008 2:40 PM INBOUND SALES MANAGER) PROTEIN TOTAL, SPE 7.0 6.0 - 8.3 g/dL [facility] ALPHA 2 GLOBULIN SPE 0.74 0.50 - 1.01 g/dL [facility] ALBUMIN SPE 4.10 3.60 - 5.00 g/dL [facility] SPE INTERP Normal electrophoretic pattern. No monoclonal gammopathy identified by immunofixation. [facility] BETA GLOBULIN 0.98 0.60 - 1.05 g/dL [facility] ALPHA 1 GLOBULIN SPE 0.14 0.12 - 0.30 g/dL [facility] ELECTROPHORESIS INTERP BY: Jose Lilly MD [facility] GAMMA GLOBULIN 1.05 0.60 - 1.33 g/dL [facility] Blood specimen (specimen) 04/08/2008 2:40 PM INBOUND SALES MANAGER 04/08/2008 2:44 PM INBOUND SALES MANAGER Narrative INTERFACE SYSTEM - 04/13/2008 8:28 AM INBOUND SALES MANAGER REFLEX DEANNE Jose Thornton MD CHEMISTRY ORDERABLES Edited Performing Organization Address [facility] Phone Number INTERFACE SYSTEM Refer to clinic/hospital department [facility] CLIA# [id number] [address] [place] [address] * CBC WITH DIFFERENTIAL (04/08/2008 2:40 PM INBOUND SALES MANAGER) WBC 6.7 4.0 - 9.8 K/uL [facility] MCH 29.7 27.2 - 32.6 pg [facility] MPV 10.5 9.3 - 12.4 fL [facility] HEMATOCRIT 42.5 35.5 - 44.0 % [facility] RDW-STDEV 40.6 37.1 - 48.7 fL [facility] RBC 4.75 3.90 - 4.90 M/uL [facility] MCHC 33.2 31.5 - 35.5 % [facility] MCV 89.5 82.0 - 99.0 fL [facility] PLATELETS 195 140 - 350 K/uL [facility] HEMOGLOBIN 14.1 11.8 - 14.8 g/dL [facility] RDW 12.4 11.5 - 14.5 % [facility] LYMPHOCYTES 35 16 - 45 % [facility] LYMPHOCYTE ABSOLUTE 2.36 0.70 - 4.50 K/uL [facility] BASOPHILS 0 0 - 2 % [facility] BASOPHILS ABSOLUTE 0.01 0.00 - 0.20 K/uL [facility] MONOCYTES 8 3 - 13 % [facility] MONOCYTE ABSOLUTE 0.51 0.10 - 1.30 K/uL [facility] NEUTROPHILS 55 45 - 70 % [facility] NEUTROPHIL ABSOLUTE 3.67 1.90 - 7.00 K/uL [facility] EOSINOPHILS 2 0 - 7 % [facility] EOSINOPHIL ABSOLUTE 0.14 0.00 - 0.70 K/uL [facility] Blood specimen (specimen) 04/08/2008 2:40 PM INBOUND SALES MANAGER 04/08/2008 2:44 PM INBOUND SALES MANAGER us Jose Thornton MD HEMATOLOGY ORDERABLES Edited INTERFACE SYSTEM Refer to clinic/hospital department [facility] CLIA# [id number] [address] [place] [address] documented in this encounter Visit Diagnoses Diagnosis Lump or mass in breast documented in this encounter Care Teams Equipment Operator Relationship Specialty Start Date End Date Tatianna Gonzalez MD PCP - General Internal Medicine 12/05/17 documented as of this encounter
[2024-09-22 11:03] VITALS: BP 161/79; O2SAT 97
--- NOTE | 2024-09-22 11:06 | CT_ITS ---
WS: [id number] CT FACIAL BONES TECHNIQUE: Noncontrast facial bones with coronal and sagittal reformatted images. CLINICAL INFORMATION: fall COMPARISON: None. DLP: 618.[address] scans at [facility] use at least one of these dose optimization techniques: automated exposure control; mA and/or kV adjustment per patient size (includes targeted exams where dose is matched to clinical indication); or iterative reconstruction. FINDINGS: Comminuted fractures of the anterior nasal bones and distal nasal tuft. Associated soft tissue edema. Fluid in the ethmoid air cells and nasal turbinates. Marked S-shaped nasal septal deviation LEFT to RIGHT anteriorly measuring 8 mm. Mild mucosal thickening in the maxillary sinuses. Sphenoid sinuses are well aerated. Mastoid air cells are well aerated. Normal parapharyngeal fat. Normal posterior nasopharynx. Punctate parotid calcifications. Congenital incomplete posterior C1 ring. CT/CT facial bones wo con* [id number] IMPRESSION: 1. Comminuted anterior nasal bone fractures described above with comminuted fr actures of the distal nasal tuft. 2. Marked LEFT to RIGHT nasal septal deviation measuring 8 mm. 3. Fluid and secretions in the nasal turbinates and ethmoid air cells.
--- NOTE | 2024-09-22 11:08 | W.ED.FALL ---
HPI - Fall General: Chief Complaint: Fall Stated Complaint: fall Time Seen by Provider: 09/22/24 10:19 Source: patient Mode of arrival: ambulatory Limitations: no limitations History of Present Illness: 69-year-old female states that she tripped on some gravel this morning and fell. States she had landed on her face does have a contusion and deformity to her nose also chipped her front tooth. She denies any loss conscious she denies any headache she rates her nasal pain a 3 out of 10 denies any other injuries from the fall denies any neck pain Associated symptoms-after fall: Denies abdominal pain, chest pain, headache(s) or neck pain Related Data Home Medications ?Medication ?Instructions ?Recorded ?Confirmed cholecalciferol (vitamin D3) 125 125 mcg PO DAILY 09/22/24 09/22/24 mcg (5,000 unit) tablet (Vitamin D3) cyclosporine 0.05 % eye drops in a 1 drp ophthalmic (eye) Q12H 09/22/24 09/22/24 dropperette (Restasis) ezetimibe 10 mg tablet 10 mg PO DAILY 09/22/24 09/22/24 metoprolol succinate 100 mg 100 mg PO DAILY 09/22/24 09/22/24 tablet,extended release 24 hr omeprazole 20 mg capsule,delayed 20 mg PO QAM 09/22/24 09/22/24 release Allergies Allergy/AdvReac Type Severity Reaction Status Date / Time Lcnvlhl-MIH-UbB Reductase Allergy Unknown Verified 09/22/24 10:18 Inhibitor Review of Systems Const: Denies: fever(s), chills, body aches or change in appetite ENMT: Denies: throat pain or dental pain Card: Denies: chest pain Resp: Denies: dyspnea GI: Denies: abdominal pain, nausea, vomiting or diarrhea Musc: Denies: neck pain or back pain Skin/Breast: Denies: rash Neuro: Denies: headache(s) Physical Exam Const: COMMON NORMALS: no acute distress, patient oriented x3 and healthy appearing HENMT: COMMON NORMALS: normocephalic and atraumatic HEAD & SCALP: normocephalic and atraumatic OTHER: Nasal contusion no deformity does have a slight chip of tooth #9 with no dentin exposed Neck/C-Spine: COMMON NORMALS: full ROM and supple Chest: COMMONS NORMALS: normal inspection of the chest Resp: COMMON NORMALS: normal respiratory effort, No retractions, No use of accessory muscles and clear to auscultation bilaterally AUSCULTATION: clear to auscultation bilaterally Cardio: COMMON NORMALS: regular rate, regular rhythm and No murmurs present (Cardio) RATE: regular rate RHYTHM: regular rhythm Extremity: COMMON NORMALS: normal to inspection and full ROM Neuro: COMMON NORMALS: patient oriented x3, moves all extremities and no focal motor deficits Psych: COMMON NORMALS: mental status grossly normal, Normal thought process present and cooperative THOUGHT PROCESS: Normal thought process present Skin: COMMON NORMALS: no rashes or lesions noted and no wounds GENERAL SKIN EXAM: no rashes or lesions noted Course Vital Signs: Vital signs: Vital Signs Temperature 97.6 F 09/22/24 10:15 Pulse Rate 68 09/22/24 10:15 Respiratory Rate 14 09/22/24 10:15 Blood Pressure 161/79 09/22/24 11:03 Pulse Oximetry 97 09/22/24 11:03 Oxygen Delivery Me thod Room Air 09/22/24 10:15 MDM - Fall Medical Decision Making Patient presents after a fall she does have a chipped tooth along with nasal fracture she is follow-up with a dentist along with ENT back in [place] no head injury noted she stable for discharge follow-up PCP return if worsening. Medical Records I reviewed the patient's medical records. Lab Data Radiology Impressions Face CT 09/22/24 11:06 IMPRESSION: 1. Comminuted anterior nasal bone fractures described above with comminuted fractures of the distal nasal tuft. 2. Marked LEFT to RIGHT nasal septal deviation measuring 8 mm. 3. Fluid and secretions in the nasal turbinates and ethmoid air cells. 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
[2024-09-22 13:02] VITALS: BP 144/80; PULSE 61; RESP 16; O2SAT 99
== END 2024-09-22 13:03 | disposition home or self-care (01) ==
PROVIDERS: Emergency Provider Emergency Medicine
DX: S02.2XXA Fracture of nasal bones, initial encounter for closed fracture (principal); K08.89 Other specified disorders of teeth and supporting structures; W01.0XXA Fall on same level from slipping, tripping and stumbling without subsequent striking against object, initial encounter
CPT/HCPCS: 70486; 99284; J9999